=== PATIENT | male | born 1995 | race Caucasian/White ===

== ENCOUNTER 2019-12-29 16:03 | Emergency (ER) | payer OTHER ==
--- NOTE | 2019-12-29 16:13 | PDOC ---
Rapid Medical Evaluation Chief Complaint: Injury Time Seen by Provider: 12/29/19 16:11 Medical Evaluation: Allergies Allergy/AdvReac Type Severity Reaction Status Date / Time No Known Allergies Allergy Verified 03/26/15 11:55 12/29/19 16:12 I have performed a brief in-person evaluation of this patient. The patient presents with a chief complaint of: b/l hand injuries. patient had left FOOSH injury while intoxicated last night, then punched a wall with his right hand Pertinent physical exam findings: swelling and ecchymosis to b/l hands I have ordered the following: x-rays The patient will proceed to the ED for further evaluation. Discharge Disposition - Diagnosis Hand injury - Discharge Dispostion Condition at time of disposition: Stable - Referrals - Patient Instructions - Post Discharge Activity
[2019-12-29 16:14] VITALS: BP 118/62; PULSE 77; TEMP 98.3; BMI 26.6
--- NOTE | 2019-12-29 16:26 | PDOC ---
History of Present Illness - General Chief Complaint: Injury Stated Complaint: POS BROKEN HANDS Time Seen by Provider: 12/29/19 16:11 History Source: Patient Exam Limitations: No Limitations Past History - Travel Traveled outside of the country in the last 30 days: No Close contact w/someone who was outside of country & ill: No - Past Medical History Allergies/Adverse Reactions: Allergies Allergy/AdvReac Type Severity Reaction Status Date / Time No Known Allergies Allergy Verified 03/26/15 11:55 Home Medications: Ambulatory Orders NK [No Known Home Medication] 12/29/19 COPD: No - Immunization History Td Vaccination: (unknown) Immunization Up to Date: Yes - Psycho Social/Smoking Cessation Hx Smoking Status: No Smoking History: Current every day smoker Years of Tobacco Use: 0 Have you smoked in the past 12 months: Yes Number of Cigarettes Smoked Daily: 3 Cigars Per Day: 0 Information on smoking cessation initiated: No Hx Alcohol Use: No Drug/Substance Use Hx: No Substance Use Type: Alcohol Review of Systems - Review of Systems Able to Perform ROS?: Yes Is the patient limited [place] proficient: Yes Constitutional: Yes: See HPI. No: Symptoms Reported, Fever, Malaise HEENTM: No: Symptoms Reported Respiratory: No: Symptoms reported Musculoskeletal: Yes: Symptoms Reported, See HPI, Joint Pain, Joint Swelling All Other Systems: Reviewed and Negative *Physical Exam - Vital Signs Last Vital Signs Temp Pulse Resp BP Pulse Ox 98.3 F 77 18 118/62 98 12/29/19 16:12 12/29/19 16:12 12/29/19 16:12 12/29/19 16:12 12/29/19 16:12 Discharge - Discharge Information Problems reviewed: Yes Clinical Impression/Diagnosis: Sprain of finger of right hand Qualifiers: Encounter type: initial encounter Finger: ring finger Sprain of finger site: interphalangeal joint Qualified Code(s): S63.634A - Sprain of interphalangeal joint of right ring finger, initial encounter Contusion of hand, left Qualifiers: Encounter type: initial encounter Qualified Code(s): S60.222A - Contusion of left hand, initial encounter Condition: Stable Disposition: HOME - Admission No - Follow up/Referral Referrals: Lucas Lund MD [Staff Physician] - - Patient Discharge Instructions Patient Printed Discharge Instructions: DI for Contusion, DI for Finger Sprain Additional Instructions: Rest, avoid strenuous activity or exercise until symptoms resolve Elevate, ice, may use compression with Geraldo wraps or splinting as directed May use ibuprofen or Tylenol for swelling or pain relief Follow-up with PCP or orthopedist for reevaluation in 2 to 3 days Return to emergency department for worsened pain, swelling, fevers, or other complications - Post Discharge Activity Work/Back to School Note: Back to Work
== END 2019-12-29 17:06 | disposition home or self-care (01) ==
LOC: JERFT 16:03
DX: F10.920 Alcohol use, unspecified with intoxication, uncomplicated (principal); S63.634A Sprain of interphalangeal joint of right ring finger, initial encounter; S60.222A Contusion of left hand, initial encounter; W18.39XA Other fall on same level, initial encounter; Y93.89 Activity, other specified; Y92.89 Other specified places as the place of occurrence of the external cause; Y99.8 Other external cause status; F17.210 Nicotine dependence, cigarettes, uncomplicated
CPT/HCPCS: 73110-TC-LT-FY; 73110-TC-RT-FY; 73130-TC-LT-FY; 73130-TC-RT-FY; 99283-25

== ENCOUNTER 2020-09-08 17:51 | Emergency (ER) | payer OTHER ==
[2020-09-08 18:13] VITALS: BP 100/76; PULSE 88; TEMP 97.4; BMI 22.1
[2020-09-08] MEDS ORDERED: IBUPROFEN 600 MG TABLET (FP) PO ONE ×2 (18:39→18:40)
== END 2020-09-08 18:48 | disposition home or self-care (01) ==
LOC: JER 17:51 → JERFT 17:51
DX: K01.1 Impacted teeth (principal)
CPT/HCPCS: 99283-25

== ENCOUNTER 2022-05-19 17:55 | Emergency (ER) | payer OTHER ==
[2022-05-19 18:08] VITALS: BP 123/56; PULSE 96; RESP 16; TEMP 98.3; BMI 28.0
== END 2022-05-19 20:07 | disposition home or self-care (01) ==
LOC: FER 17:55
DX: S09.90XA Unspecified injury of head, initial encounter (principal); S90.31XA Contusion of right foot, initial encounter
CPT/HCPCS: 70450-TC; 73630-TC-RT-FY; 99284-25

== ENCOUNTER 2023-01-29 19:50 | Emergency (ER) | payer OTHER ==
[2023-01-29 19:56] VITALS: BP 121/82; PULSE 76; RESP 20; TEMP 98.4; BMI 28.3
== END 2023-01-29 21:00 | disposition home or self-care (01) ==
LOC: JERFT 19:50
DX: Z00.00 Encounter for general adult medical examination without abnormal findings (principal); Z20.822 Contact with and (suspected) exposure to COVID-19
CPT/HCPCS: 99283-25; C9803-CS; U0003; U0005